=== PATIENT | female | born 1970 | race Caucasian/White ===

== ENCOUNTER 2016-10-21 20:26 | Emergency (ER) | payer MEDICARE, OTHER ==
[~2016-10-21] VITALS: Ht 162.6 cm; Wt 120.2 kg
--- NOTE | ~2016-10-21 | CR72 ---
[facility]. [facility] A Service [facility] RADIOLOGY TEXT RESULTS PATIENT: MAKI WALKER LOCATION: SED : 68 UNIT #: [id number] AGE: [address]: Allen Rosenberg DO SEX: F ORDER DR: [id number] [place] [id number] E MR#: [id number] Acc #: [id number] NAME: MAKI WALKER : 1970 SEX: F STUDY DATE/TIME: 10/21/2016 22:40 UNIT: SED ROOM: STUDY DESCRIPTION: CR Chest Single View Portable Attending Physician: Allen Rosenberg Ordering Physician: Allen Rosenberg Primary Care Physician: [facility] MEDICAL IMAGING REPORT This report is preliminary unless electronic signature is present. EXAM AP portable chest 10/21/2016 HISTORY 46-year-old female in the ED complaining of 2-day history of intermittent chest pain and left arm pain. TECHNIQUE AP portable chest x-ray. FINDINGS Examination is limited by patient body habitus, AP lordotic positioning and radiographic underexposure. The exam is grossly negative for airspace consolidation, pneumothorax or pleural effusion. Heart size and pulmonary vascularity are within normal limits. No significant change since 12/24/2014. IMPRESSION Limited study showing no definite active disease in the chest. Dictated by... Severo Jackson M.D. THIS IS AN ELECTRONICALLY VERIFIED REPORT Severo Jackson M.D. at 10/22/2016 5:58 AM RGW/rnr TD: 10/22/2016 03:51 JOB #: [id number] MEDICAL IMAGING REPORT [facility] A Service [facility] RADIOLOGY TEXT RESULTS PATIENT: MAKI WALKER LOCATION: SED : [birth year] UNIT #: [id number] AGE: [address]: Allen Rosenberg DO SEX: F ORDER DR: Page 1 of 1
--- NOTE | ~2016-10-21 | EKG ---
PATIENT: MAKI WALKER UNIT #: [id number] Ventricular Rate: 73 BPM Atrial Rate: 73 BPM P-R Interval: 148 ms QRS Duration: 84 ms Q-T Interval: 400 ms QTC Calculation(Bezet): 440 ms P Greenwood: 46 degrees Calculated R Greenwood: 38 degrees Calculated T Greenwood: 31 degrees Diagnosis Line: Normal sinus rhythm Diagnosis Line: Normal ECG Diagnosis Line: When compared with ECG of 10-JUL-2015 14:41, Diagnosis Line: No significant change was found Diagnosis Line: Confirmed by ALBERT VELEZ MD ([id number]) on Diagnosis Line: 10/31/2016 9:53:34 PM INTERPRETING MD: KURT
[~2016-10-21 20:26] MED LIST: ALAVERT10 MG PO; ALBUTEROL20 ml INH; AMITIZA PO; AMOXICILLIN PO; ASPIRIN PO; AUGMENTIN PO; BACLOFEN10 MG PO; BENTYL20 MG DOB; BUSPAR15 MG PO; CELEXA; CELEXA PO; CELEXA20 MG PO; CIPRO PO; CLARITIN10 MG PO; COUMADIN PO; CYMBALTA PO; DARVOCET-N 1001 TAB PO; DICLOFENAC PO; DOXYCYCLINE HY100 M2 PO; EC-NAPROSYN500 MG PO; FAMOTIDINE PO; FIORICET 50-321 EACH PO; FIORICET W/CODE1 CAP PO; FLEXERIL PO; FLEXERIL10 MG PO; FLONASE16 GM; GABAPENTIN300 M2; HYDROXYZINE HCL10 MG PO; IBUPROFEN PO; IBUPROFEN800 MG PO; KETOPROFEN PO; LAMICTAL; LAMICTAL PO; LAMICTAL100 MG PO; LASIX PO; LISINOPRIL PO; LOPRESSOR; LORTAB 101 TAB 10/5 PO; LORTAB 2.5/5001 TAB PO; LORTAB 5/500 TA1 TA1 PO; LORTAB 7.51 TAB PO; MEDROL4 MG/DOSE- PO; METOPROLOL PO; METOPROLOL TAR25 MG PO; MOBIC; MOBIC PO; MUCINEX DM1 TAB.SR . PO; NEURONTIN PO; NOT TAKING MEDS; OMNICEF300 MG PO; PAXIL PO; PEN-VEE K PO; PHENERGAN DM1 ML DOB; PHENERGAN PO; PHENERGAN25 MG PO; PREDNISONE PO; PREDNISONE10 MG PO; PRILOSEC PO; PROTONIX PO; PROZASIN PO; RISPERDAL3 MG PO; RISPERIDONE PO; RITE-AID PHARMACY; SEROQUEL; SKELAXIN PO; SYNTHROID; TOPAMAX PO; TOPROL XL PO; TRAMADOL HCL50 M1 PO; TYLOX 5/500 CAP1 CAP PO; ULTRAM PO; VICODIN 5/1 TAB 5/50 PO; VICODIN 5/500 T1 TAB PO; VICODIN PO; VISTARIL PO; VOLTAREN75 MG PO; ZEGERID40 MG/PKT PO; ZOCOR; ZOCOR PO; [UNRECOGNIZED DRUG - REMARK]
[2016-10-21 21:19] LABS: BASOPHIL# 0.1 X10e3 (0-0.3); BASOPHIL% 0.7 % (0-2.5); EOSINOPHIL# 0.1 X10e3 (0-0.7); EOSINOPHIL% 0.9 % (0.0-7.0); HEMATOCRIT 40.2 % (35.0-45.0); HEMOGLOBIN 13.3 gm/dL (12.0-16.0); LYMPHOCYTE# 2.8 X10e3 (1.0-3.5); LYMPHOCYTE% 31.7 % (17.0-45.0); MEAN CELL VOLUME 86.5 FL (83-96); MEAN CORPUSCULAR HEMOGLOBIN 28.6 PG (28-34); MEAN CORPUSCULAR HGB CONC 33.1 g/dL (30-36); MEAN PLATELET VOLUME 8.5 FL (6.5-11.5); MONOCYTE# 0.7 X10e3 (0-1.0); MONOCYTE% 8.2 % (3.0-12.0); NEUTROPHIL# 5.1 X10e3 (1.5-7.1); NEUTROPHIL% 58.5 % (40-75); PLATELET COUNT 185 X10e3 (140-420); RED BLOOD COUNT 4.65 X10e (3.90-5.30); RED CELL DISTRIBUTION WIDTH 14.8 % (11.0-15.5); WHITE BLOOD COUNT 8.7 X10e3 (4.0-10.5)
[2016-10-21 21:20] LABS: DIFF IND NO
[2016-10-21 21:21] LABS: PROTHROMBIN TIME (PATIENT) 11.5 SECONDS (9.5-12.4)
[2016-10-21 21:26] LABS: POC - CKMB 4.6 ng/mL (0.0-7.9); POC - TROPONIN <0.05 ng/mL (<=0.05)
[2016-10-21 21:28] LABS: PARTIAL THROMBOPLASTIN TIME 29.9 SECONDS (25.6-38.1)
[2016-10-21 21:30] LABS: ALBUMIN SERUM 4.1 g/dL (3.5-5.0); ALKALINE PHOSPHATASE 82 U/L (32-92); ALT (SGPT) 31 U/L (10-40); AST (SGOT) 26 U/L (10-42); BILIRUBIN, DIRECT <0.1 mg/dL (0.0-0.2); BILIRUBIN,INDIRECT 0.3 mg/dL (0.0-0.9); BILIRUBIN,TOTAL 0.4 mg/dL (0.2-2.0); BLOOD UREA NITROGEN 13 mg/dL (9-23); BUN/CREATININE RATIO 11.81; CARBON DIOXIDE 30 mmol/L (22-31); CHLORIDE 105 mmol/L (100-111); CREATININE SERUM 1.1 mg/dL (0.6-1.4); GLOM FILT RATE Estimated 59.8 mL/min (>60); GLUCOSE FASTING 93 mg/dL (70-110); POTASSIUM 3.8 mmol/L (3.5-5.1); PROTEIN TOTAL SERUM 8.2 g/dL (6.0-8.3); SODIUM 139 mmol/L (135-145)
[2016-10-21 23:28] LABS: URINE SOURCE CLEAN CATCH
[2016-10-21 23:31] LABS: URINE APPEARANCE CLEAR; URINE BILIRUBIN NEG (NEG); URINE BLOOD NEG (NEG); URINE COLOR YELLOW; URINE GLUCOSE NEG (NORM); URINE KETONE NEG (NEG); URINE LEUKOCYTE ESTERASE NEG (NEG); URINE NITRATE NEG (NEG); URINE PROTEIN NEG (NEG); URINE SPECIFIC GRAVITY 1.015 (1.003-1.035)
[2016-10-21 23:36] LABS: MICRO INDICATED? NO
[2016-10-21 23:39] LABS: POC - CKMB 3.5 ng/mL (0.0-7.9); POC - TROPONIN <0.05 ng/mL (<=0.05)
== END 2016-10-22 01:52 ==
LOC: SED 20:26
PROVIDERS: Emergency Medicine
DX: R07.89 Other chest pain (principal); R51 Headache; E78.5 Hyperlipidemia, unspecified; I10 Essential (primary) hypertension; F31.9 Bipolar disorder, unspecified; K21.9 Gastro-esophageal reflux disease without esophagitis; G47.30 Sleep apnea, unspecified; J44.9 Chronic obstructive pulmonary disease, unspecified; Z88.5 Allergy status to narcotic agent; Z88.8 Allergy status to other drugs, medicaments and biological substances; Z87.891 Personal history of nicotine dependence; Z79.899 Other long term (current) drug therapy
CPT/HCPCS: 36415; 71010; 80048; 80076; 81003; 82553; 83880; 84484; 85025; 85610; 85730; 93005; 99285

== ENCOUNTER 2016-11-27 17:28 | Emergency (ER) | payer MEDICARE, OTHER ==
[~2016-11-27] VITALS: Ht 162.6 cm; Wt 120.2 kg
--- NOTE | ~2016-11-27 | CR126 ---
[facility] A Service of [facility] RADIOLOGY TEXT RESULTS PATIENT: MAKI WALKER LOCATION: SED : [birth year] UNIT #: [id number] AGE: [address]: NESTOR CONCEPCION SEX: F ORDER DR: [id number] [place] [id number] E MR#: [id number] Acc #: [id number] NAME: MAKI WALKER : 1970 SEX: F STUDY DATE/TIME: 11/27/2016 19:08 UNIT: SED ROOM: STUDY DESCRIPTION: CR Foot Complete Min 3 View Lt Attending Physician: Shital Olivares Ordering Physician: Physician Non-Staff Primary Care Physician: [facility] MEDICAL IMAGING REPORT This report is preliminary unless electronic signature is present. EXAM 3 views left foot. Date 11/27/2016. HISTORY Left foot pain and swelling since yesterday. History of cervical cancer. FINDINGS No fracture or dislocation. Posterior calcaneal spurs. Mild spurring at the dorsum of the midfoot. No acute osseous abnormality. IMPRESSION Mild spurring at the dorsum of the midfoot and posterior calcaneus. No acute left foot findings. Dictated by... Kristyn Hawk M.D. THIS IS AN ELECTRONICALLY VERIFIED REPORT Kristyn Hawk M.D. at 11/29/2016 9:52 AM LLH/sunitha TD: 11/28/2016 13:36 JOB #: [id number] MEDICAL IMAGING REPORT Page 1 of 1
== END 2016-11-27 20:22 | disposition home or self-care (01) ==
LOC: SED 17:28
DX: S90.32XA Contusion of left foot, initial encounter (principal); Z88.8 Allergy status to other drugs, medicaments and biological substances; X58.XXXA Exposure to other specified factors, initial encounter; Y92.009 Unspecified place in unspecified non-institutional (private) residence as the place of occurrence of the external cause
CPT/HCPCS: 29405; 73630; 99283